=== PATIENT | female | born 2000 | race Caucasian/White ===

== ENCOUNTER 2022-01-15 19:42 | Emergency (ER) | payer BC, SELFPAY ==
[2022-01-15] MEDS ORDERED: Ondansetron PF 4 MG/2 ML Vial ONE (19:56)
[2022-01-15 20:25] LABS: ALT (SGPT) 13 U/L (8-55); AST (SGOT) 22 U/L (5-34); Albumin 4.4 g/dL (3.5-5.0); Alkaline Phosphatase 72 U/L (40-110); Anion Gap 16 mmol/L (10-20); BUN (Urea Nitrogen) 8 mg/dL (7.0-18.7); Bilirubin, Total 0.4 mg/dL (0.2-1.2); Calc. Creatinine Clearance 0 mL/min (70-130); Calcium 8.9 mg/dL (7.8-10.44); Carbon Dioxide 20 mmol/L (22-29); Chloride 108 mmol/L (98-107); Estimated GFR 118; Globulin 2.6 g/dL (2.4-3.5); Glucose 81 mg/dL (70-105); Sodium 141 mmol/L (136-145)
[2022-01-15 20:26] LABS: Potassium 2.8 mmol/L (3.5-5.1)
[2022-01-15 20:28] LABS: #Basophils 0.1 thou/uL (0.0-0.2); #Eosinphils 0.1 thou/uL (0.0-0.7); #Lymphocytes 3.3 thou/uL (1.20-3.40); #Monocytes 0.9 thou/uL (0.11-0.59); #Neutrophils 4.6 thou/uL (1.40-6.50); %Eosinophils 0.8 % (0.0-10.0); %Monocytes 9.9 % (0.0-10.0); %Neutrophils 51.2 % (42.0-75.0); Mean Corpuscular HGB CONC 33.1 g/dL (32.0-36.0); Mean Corpuscular Hemoglobin 29.2 pg (27.0-31.0); Mean Corpuscular Volume 88.2 fL (78.0-98.0); Mean Platelet Volume 6.7 fL (7.4-10.4); Platelet Count 453 thou/uL (130-400); RBC Distribution Width 11.4 % (11.5-14.5); Red Blood Cell (RBC) Count 4.82 mill/uL (4.20-5.40); White Blood Cell (WBC) Count 8.9 thou/uL (4.8-10.8)
[2022-01-15 21:48] LABS: CO2 Tension (PvCO2) 42.5 mmHg (42.0-51.0)
[2022-01-15 21:49] LABS: Base Excess-Venous -1.4 mmol/L (-2.0 to 3.0); Bicarbonate (HCO3v) 24.1 mmol/L (22.0-28.0); Chloride 105 mmol/L (98-107); Hemoglobin - Calc 14.1 g/dL (12.0-16.0); Potassium 3.7 mmol/L (3.5-5.1); Sodium 142 mmol/L (138-145); vO2 Saturation-calc 49.4 % (60.0-85.0)
[2022-01-15 21:50] LABS: Calcium, Ionized 1.16 mmol/L (1.15-1.33); T. Carbon Dioxide 25.4 mmol/L (22.0-28.0)
== END 2022-01-15 22:10 | disposition home or self-care (01) ==
LOC: NAV ERS 19:42
DX: T59.891A Toxic effect of other specified gases, fumes and vapors, accidental (unintentional), initial encounter (principal); F45.8 Other somatoform disorders
CPT/HCPCS: 36415; 71046; 80053; 82330; 82803; 85025; 96374; J2405